=== PATIENT | male | born 1935 | race Caucasian/White ===

== ENCOUNTER 2017-03-11 06:23 | Day surgery (SDC) | payer MEDICARE, BC ==
[2017-03-11] MEDS ORDERED: Sodium Chloride 0.9% 1,000 ML IV SCH (07:00)
[2017-03-11] MEDS ORDERED: Propofol 200 MG/20 ML SDV ONE ×2 (07:21→09:59)
[2017-03-11 09:16] VITALS: BP 132/85
--- NOTE | 2017-03-12 08:11 | PROC ---
DATE OF PROCEDURE: 03/11/2017 INDICATION: Alexi is an 81-year-old male who has had trouble swallowing food, it does not go through, and he has to kind of force his food down. He had dilatations before of the esophagus. Last time, we dilated him, we dilated to 60-Maori. This time, he said it was a little bit different; the food just does not want to go through. The risks and benefits were explained to the patient for dilatation of the esophagus. He was taken to the OR. PROCEDURE IN DETAIL: Anesthesia was given by nurse drop board worker. During the procedure, we used 200 mg of propofol. The tube was placed into the pharynx and esophagus without difficulty and advanced into the stomach, where we immediately noted retained food. It was a very difficult time getting through the pylorus. We had to stretch the pylorus to get the Olympus 180 scope through. We did get into the first and second part of the duodenum. Upon retraction of the tube, noted no duodenal abnormality. We then used a 45 balloon and dilated the pylorus. We went back in there twice and dilated twice, held it for 30 seconds with each dilatation. The remainder of the stomach was unremarkable, got good observation to the greater and lesser curvature. The dilator balloon was retracted. Retroflexion of the scope into the fundus revealed no abnormalities. Air was withdrawn from the stomach. The GE junction was identified. There were no significant stenotic area in the esophagus. The vocal cords move symmetrically. No obvious pathology noted. The tube was removed. The patient tolerated the procedure well. PREOPERATIVE DIAGNOSIS: Dysphagia. 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 We will need to repeat this in 1 to 3 months, depending on his symptoms. Tim Mike MD /[id number]
== END 2017-03-11 09:40 | disposition home or self-care (01) ==
LOC: JP.SDS 06:23
PROVIDERS: ATTEND Internal Medicine
DX: K31.1 Adult hypertrophic pyloric stenosis (principal); Z88.8 Allergy status to other drugs, medicaments and biological substances
CPT/HCPCS: 43245; J2704; J7040

== ENCOUNTER 2019-03-07 06:30 | Day surgery (SDC) | payer MEDICARE, BC ==
[2019-03-07] MEDS ORDERED: Sodium Chloride 0.9% 1,000 ML IV SCH (07:00)
[2019-03-07] MEDS ORDERED: Propofol 200 MG/20 ML SDV ONE (07:17)
[2019-03-07] MEDS ORDERED: fentaNYL 100 MCG/2 ML SDV ONE (07:17)
[2019-03-07 10:02] VITALS: PULSE 55
[2019-03-07 10:17] VITALS: BP 153/85
--- NOTE | 2019-03-07 13:16 | PROC ---
DATE OF PROCEDURE: 03/07/2019 SURGEON: Tim Mike MD INDICATION: Alexi is an 83-year-old male who comes in because of dysphagia. Last weekend, he was eating and got food stuck in his esophagus, which he has had before, and took a long time for it to finally clear. He came into the office. We have scheduled an esophagogastroduodenoscopy. The risks and benefits were explained to him and was taken to the OR. PROCEDURE IN DETAIL: Anesthesia was given by nurse day care provider. During the procedure, we used 100 mcg of fentanyl and 150 mg of propofol. The Olympus 180 scope was used, was placed into the mouth, into the pharynx without difficulty and advanced under direct vision. We got into the stomach and advanced into the first and second part of the duodenum. Upon retraction of the tube, noted no duodenal erythema and no abnormality. The opening into the small intestine was narrow, but able to get through without any difficulty. The antrum and fundus, after retroflexion of the tube, were unremarkable and showing no lesions or abnormality. At the GE junction noted a small polyp. This was observed as well by the surgeon, Dr. Delfin Viramontes. This was biopsied. The Savary dilator wire was then placed through the scope, and the scope was slowly retracted after removing air from the stomach. The tube was removed. The wire was left in place. We then took a 54-Martiniquais dilator and dilated the esophagus without difficulty. The dilator and the guidewire were removed. There was no blood noted on the Savary dilator. He tolerated the entire procedure without difficulty. PREOPERATIVE DIAGNOSIS: Esophageal stenosis. POSTOPERATIVE DIAGNOSIS: Polyp noted at the gastroesophageal junction. Biopsies are pending of the polypoid lesion. Esophagus was dilated to 54-Martiniquais. Tim Mike MD /[id number]
== END 2019-03-07 10:35 | disposition home or self-care (01) ==
LOC: JP.SDS 06:30
PROVIDERS: ATTEND Internal Medicine
DX: K22.2 Esophageal obstruction (principal); K31.7 Polyp of stomach and duodenum; G47.33 Obstructive sleep apnea (adult) (pediatric); E11.9 Type 2 diabetes mellitus without complications; E66.9 Obesity, unspecified; Z88.8 Allergy status to other drugs, medicaments and biological substances; Z99.89 Dependence on other enabling machines and devices; Z68.37 Body mass index [BMI] 37.0-37.9, adult
CPT/HCPCS: 43239; 43248; J2704; J3010; J7030; 88305; 88312

== ENCOUNTER 2021-11-05 18:21 | Emergency (ER) | payer MEDICARE, BC ==
[2021-11-05] MEDS ORDERED: Ampicillin/Sulbactam Na 1.5 GM in Sodium Chloride 0.9% 50 ML IV ONE (20:33)
[2021-11-05 20:54] VITALS: BP 142/74; PULSE 75
== END 2021-11-05 21:27 | disposition home or self-care (01) ==
LOC: JP.ED 18:21
DX: K57.32 Diverticulitis of large intestine without perforation or abscess without bleeding (principal); R10.30 Lower abdominal pain, unspecified; E11.9 Type 2 diabetes mellitus without complications; E66.9 Obesity, unspecified; Z68.36 Body mass index [BMI] 36.0-36.9, adult; Z90.49 Acquired absence of other specified parts of digestive tract; Z88.1 Allergy status to other antibiotic agents; Z79.899 Other long term (current) drug therapy; Z79.01 Long term (current) use of anticoagulants; Z79.4 Long term (current) use of insulin
CPT/HCPCS: 36415; 74176; 80053; 83605; 83690; 85025; 85610; 96365; 99282; 99284-25; J0295

== ENCOUNTER 2023-05-01 17:30 | Emergency (ER) | payer MEDICARE, BC ==
[2023-05-01 17:50] LABS: BASOPHILS PERCENT AUTO 0.3 % (0.1-1.3); EOSINOPHILS PERCENT AUTO 1.4 % (0.0-5.4); HEMATOCRIT 40.4 % (38.4-49.7); HEMOGLOBIN 13.4 g/dL (12.9-16.9); IMMATURE GRAN ABSOLUTE AUTO 0.03 K/uL (0.00-0.23); IMMATURE GRAN PERCENT AUTO 0.4 % (0.0-0.7); LYMPHOCYTES ABSOLUTE AUTO 0.81 K/uL (0.8-3.3); LYMPHOCYTES PERCENT AUTO 10.9 % (11.4-47.7); MEAN CORPUSCULAR HEMOGLOBIN 30.3 pg (31.6-35.5); MEAN CORPUSCULAR HGB CONC 33.2 g/dL (31.6-35.5); MEAN CORPUSCULAR VOLUME 91.4 fL (81.4-99.0); MONOCYTES ABSOLUTE AUTO 0.43 K/uL (0.20-0.90); MONOCYTES PERCENT AUTO 5.8 % (3.3-12.6); NEUTROPHILS ABSOLUTE AUTO 6.01 K/uL (1.0-7.6); NEUTROPHILS PERCENT AUTO 81.2 % (40.0-78.1); PLATELET COUNT,PLT 164 K/uL (130-375); RED BLOOD CELL COUNT 4.42 M/uL (4.14-5.76); WHITE BLOOD CELL COUNT,WBC 7.4 K/uL (3.2-11.0)
[2023-05-01 17:51] LABS: BASOPHILS ABSOLUTE AUTO 0.02 K/uL (0.00-0.10)
[2023-05-01 18:15] LABS: ALANINE AMINOTRANSFERASE,ALT 13 U/L (12-78); ALBUMIN 3.5 g/dL (3.4-5.0); ALKALINE PHOSPHATASE 62 U/L (46-116); ASPARTATE AMNIOTRANSFERASE,AST 15 U/L (15-37); BILIRUBIN TOTAL 0.5 mg/dL (0.2-1.0); BLOOD UREA NITROGEN,BUN 31 mg/dL (7-18); CALCIUM 8.6 mg/dL (8.5-10.1); CARBON DIOXIDE,CO2 27 mmol/L (21-32); CHLORIDE,CL 101 mmol/L (100-108); CREATININE 1.6 mg/dL (0.8-1.3); EST CRCL DRUG DOSING (CG) 33.99 mL/min; ESTIMATED GFR 41 mL/min (>60); GLUCOSE RANDOM 182 mg/dL (74-106); SODIUM,NA 139 mmol/L (140-148); TROPONIN I HIGH SENSITIVITY 14.8 pg/mL (<=60.3)
[2023-05-01 20:46] VITALS: BP 154/76; PULSE 72
[2023-05-01 21:05] LABS: APPEARANCE,URINE SLIGHTLY CLOUDY (CLEAR); BILIRUBIN,URINE NEGATIVE (NEGATIVE); COLOR,URINE YELLOW (YELLOW); GLUCOSE,URINE NEGATIVE (NEGATIVE); KETONES,URINE TRACE mg/dL (NEGATIVE); LEUKOCYTE ESTERASE,URINE TRACE (NEGATIVE); NITRITE,URINE NEGATIVE (NEGATIVE); OCCULT BLOOD,URINE NEGATIVE (NEGATIVE); PH,URINE 5.5 (5.0-8.0); PROTEIN,URINE NEGATIVE (NEGATIVE); UROBILINOGEN,URINE 0.2 EU/dL (0.2-1.0)
[2023-05-01 21:11] LABS: AMORPHOUS SEDIMENT,URINE NOT SEEN; BACTERIA,URINE FEW; EPITHELIAL CELLS,URINE RARE; MUCUS,URINE RARE; RBC,URINE 0-5 (0-5)
== END 2023-05-01 21:51 | disposition home or self-care (01) ==
LOC: JP.ED 17:30
DX: E86.0 Dehydration (principal); R55 Syncope and collapse; E10.9 Type 1 diabetes mellitus without complications; E66.9 Obesity, unspecified; Z68.35 Body mass index [BMI] 35.0-35.9, adult; Z79.01 Long term (current) use of anticoagulants; Z79.84 Long term (current) use of oral hypoglycemic drugs; Z79.899 Other long term (current) drug therapy; Z88.1 Allergy status to other antibiotic agents; Z88.8 Allergy status to other drugs, medicaments and biological substances
CPT/HCPCS: 36415; 80053; 81001; 83605; 84484; 85025; 86140; 93005; 93010; 99284